=== PATIENT | female | born 1950 | race Caucasian/White ===

== ENCOUNTER 2020-01-23 18:50 | Emergency (ER) | payer MEDICARE ==
[~2020-01-23] VITALS: Ht 160 cm; Wt 178.0 kg
--- NOTE | 2020-01-23 19:27 | NUR ---
CORAL LOZADA AT BEDSIDE TRAUMA IS CALLED OFF.
[2020-01-23 20:18] VITALS: BP 147/79
== END 2020-01-23 20:20 | disposition home or self-care (01) ==
LOC: ER 18:51
DX: S00.81XA Abrasion of other part of head, initial encounter (principal); S60.211A Contusion of right wrist, initial encounter; S00.83XA Contusion of other part of head, initial encounter; I48.91 Unspecified atrial fibrillation; W19.XXXA Unspecified fall, initial encounter; Y93.89 Activity, other specified; Y92.89 Other specified places as the place of occurrence of the external cause; Y99.8 Other external cause status
CPT/HCPCS: 70450; 73130; 99284

== ENCOUNTER 2021-05-25 06:28 | Day surgery (SDC) | payer MEDICARE ==
[2021-05-15 15:09] LABS: BASOPHILS % (AUTO) 0.3 % (0-1); EOSINOPHILS % (AUTO) 0.1 % (0-6); LYMPHOCYTES # (AUTO) 0.9 X10'3 (1.1-4.8); LYMPHOCYTES % (AUTO) 12.9 % (21-51); MEAN CORPUSCULAR HEMOGLOBIN 28.7 PG (27.0-31.0); MEAN CORPUSCULAR HGB CONC 33.4 g/dL (33.0-36.5); MEAN PLATELET VOLUME 9.9 FL (7.4-10.4); MONOCYTES # (AUTO) 0.5 X10'3 (0-0.9); MONOCYTES % (AUTO) 6.7 % (2-12); NEUTROPHILS # (AUTO) 5.9 X10'3 (1.8-7.7); PRE OP HEMATOCRIT 38.5 % (35.0-45.0); PRE OP HEMOGLOBIN 12.8 g/dL (12.0-16.0); PRE OP PLATELET COUNT 233 X10'3 (140-440); RED BLOOD COUNT 4.48 X10'6 (4.20-5.60); RED CELL DISTRIBUTION WIDTH 13.7 % (11.5-14.5)
[2021-05-15 15:21] LABS: ALBUMIN 3.9 G/DL (3.4-5.0); ALBUMIN/GLOBULIN RATIO 1.1 (1.1-1.5); ALKALINE PHOSPHATASE 76 IU/L (46-116); BLOOD UREA NITROGEN 32 MG/DL (7-18); BUN/CREATININE RATIO 22.1 (6.6-38.0); CALCIUM 8.8 MG/DL (8.5-10.1); CHLORIDE 108 MMOL/L (99-107); CREATININE 1.45 MG/DL (0.40-0.90); PRE OP ALT 23 U/L (30-65); PRE OP ANION GAP 13 (8-16); PRE OP AST 15 U/L (10-37); PRE OP BILIRUB, TOTAL 0.3 MG/DL (0.0-1.0); PRE OP GLUCOSE 162 MG/DL (70-104); PRE OP SODIUM 142 MMOL/L (135-145); TOTAL CARBON DIOXIDE 20.6 MMOL/L (24-32); TOTAL PROTEIN 7.3 G/DL (6.4-8.2); eGFR 35 ML/MIN
[~2021-05-25] VITALS: Ht 160 cm; Wt 83.0 kg
[~2021-05-25 06:28] MED LIST: APIX5TAB3 PO; ATOR40TA PO; BENA10TA74 PO; DOCUMENT DATE & TIME OF BETA-BLOCKER PO ONE; EMPA10TA PO; LANTUS SQ; LOPE2TAB25 PO; METF-900 PO; METO-539 PO; cefazolin/dext.iso 2gm/100ml IV ONE; famotidine 20mg tablet PO ONE; ringers solution, lacted 1,000 ML IV SCH
[2021-05-25] MEDS ORDERED: BUPIVAcaine/PF 2.5 mg/ml (0.25%) 30ml vial ONE (06:44)
[2021-05-25 08:08] LABS: BASOPHILS % (AUTO) 0.9 % (0-1); EOSINOPHILS # (AUTO) 0.2 X10'3 (0-0.9); EOSINOPHILS % (AUTO) 3.5 % (0-6); HEMATOCRIT 40.1 % (35.0-45.0); HEMOGLOBIN 13.5 g/dl (12.0-16.0); LYMPHOCYTES # (AUTO) 1.5 X10'3 (1.1-4.8); LYMPHOCYTES % (AUTO) 26.3 % (21-51); MEAN CORPUSCULAR HEMOGLOBIN 28.7 PG (27.0-31.0); MEAN CORPUSCULAR HGB CONC 33.6 g/dL (33.0-36.5); MEAN CORPUSCULAR VOLUME 85.4 FL (78-98); MEAN PLATELET VOLUME 9.7 FL (7.4-10.4); MONOCYTES # (AUTO) 0.6 X10'3 (0-0.9); MONOCYTES % (AUTO) 9.8 % (2-12); NEUTROPHILS # (AUTO) 3.4 X10'3 (1.8-7.7); NEUTROPHILS % (AUTO) 59.5 % (42-75); PLATELET COUNT 212 X10'3 (140-440); RED CELL DISTRIBUTION WIDTH 13.8 % (11.5-14.5); WHITE BLOOD COUNT 5.6 X10'3 (4.5-11.0)
[2021-05-25 08:22] LABS: PARTIAL THROMBOPLASTIN TIME 30 SECONDS (22-32)
[2021-05-25 08:26] LABS: ALANINE AMINOTRANSFERASE 19 U/L (12-78); ALBUMIN 3.7 G/DL (3.4-5.0); ALBUMIN/GLOBULIN RATIO 1.1 (1.1-1.5); ALKALINE PHOSPHATASE 73 IU/L (46-116); ANION GAP 12 (8-16); ASPARTATE AMINO TRANSFERASE 13 U/L (10-37); BILIRUBIN,TOTAL 0.5 MG/DL (0.1-1.0); BLOOD UREA NITROGEN 29 MG/DL (7-18); BUN/CREATININE RATIO 23.2 (6.6-38.0); CALCIUM 8.6 MG/DL (8.5-10.1); CHLORIDE 107 MMOL/L (99-107); CREATININE 1.25 MG/DL (0.40-0.90); GLUCOSE 158 MG/DL (70-104); POTASSIUM 3.9 MMOL/L (3.5-5.1); SODIUM 142 MMOL/L (135-145); TOTAL CARBON DIOXIDE 22.6 MMOL/L (24-32); eGFR 42 ML/MIN
[2021-05-25] MEDS ORDERED: fentaNYL/PF 50MCG/1 ML 2ML syringe ONE (09:32)
[2021-05-25] MEDS ORDERED: midazolam 1 mg/ML 2ml injection ONE (09:32)
[2021-05-25] MEDS ORDERED: LIDOcaine 0.5% (5mg/ml) 50ml vial ONE (09:52)
[2021-05-25] MEDS ORDERED: propofol inj 20 ML IV ONE (09:52)
[2021-05-25 10:02] VITALS: BP 125/58
--- NOTE | 2021-05-25 10:02 | NUR ---
Received from OR via G[facility], accompanied by Anesthesiologist ZULAY and report given by Anesthesiolgist. PT. ARRIVED AWAKE. ON RA. VSS. DENIES PAIN LR INFUSING INTO L. WRIST 20 G IV AT 100 ML/HR, CDI. R. WRIST DRESSING CDI. ICE APPLED. SENSATION AND MOVEMENT INTACT AND ALL PULSES ON EXTREMITIES PALPABLE. AFIB NOTED WITH DOCUMENTED HX. BG 170 UPON ARRIVAL. Addendum: 05/25/21 at 1030 by Daisy Winter RN Amended: Links added.
[2021-05-25] MEDS ORDERED: morphine 4 MG/ML inj SYRINge IV PRN (10:05)
[2021-05-25] MEDS ORDERED: ringers solution, lacted 1,000 ML IV SCH (10:05)
[2021-05-25] MEDS ORDERED: proCHLORperazine 10 MG/2 ml inj IV PRN (10:05)
[2021-05-25] MEDS ORDERED: morphine 2 MG/ML inj. syringe IV PRN (10:05)
[2021-05-25] MEDS ORDERED: ondansetron/PF 4mg/2ml inj IV PRN (10:05)
[2021-05-25] MEDS ORDERED: acetaminophen 1,000mg/100ml IV 100 ML IV PRN (10:05)
[2021-05-25] MEDS ORDERED: meperidine/PF 25mg/ml syringe IV PRN ×3 (10:05)
[2021-05-25] MEDS ORDERED: labetalol 20mg/4ml (5mg/ml) syringe IV PRN (10:05)
[2021-05-25] MEDS ORDERED: hydrALAZINE 20mg/ml inj. IV PRN (10:05)
[2021-05-25 10:10] VITALS: BP 122/56
[2021-05-25 10:20] VITALS: BP 139/72
[2021-05-25 10:23] VITALS: BP 157/88
[2021-05-25 10:30] VITALS: BP 127/72
[2021-05-25 10:31] VITALS: BP 157/88
--- NOTE | 2021-05-25 10:45 | NUR ---
PT. UP AND DRESSING FOR DC. NAUSEA REPORTED. ZOFRAN GIVEN ORDERED. PT. RESTING IN GURNEY. NOTIFIED OF DELAY. Addendum: 05/25/21 at 1054 by Daisy Winter RN Amended: Links added.
--- NOTE | 2021-05-25 11:02 | NUR ---
ALL DISCHARGE CRITERIA HAS BEEN MET. VSS, DENIES PAIN , PT. GIVEN ONE DOSE OF ZOFRAN FOR REPORT OF NAUSEA AND MONITORED FOR 15 MINUTES. NO NAUSEA AT DC. DENIES NEED TO VOID, ABLE TO SAFELY AMBULATE AND TRANSFER SELF. IV TAKEN OUT WITHOUT ANY COMPLICATIONS. ALL DISCHARGE INSTRUCTIONS COVERED WITH PATIENT AND ALL QUESTIONS ANSWERED. PATIENT TAKEN OUT VIA WHEELCHAIR TO PERSONAL VEHICLE WHERE FAMILY/FRIEND DROVE PATIENT HOME. Addendum: 05/25/21 at 1105 by Daisy Winter RN Amended: Links added.
== END 2021-05-25 11:02 | disposition home or self-care (01) ==
LOC: PAS 06:28
PROVIDERS: ATTEND Orthopaedic Surgery Hand Surgery
DX: G56.01 Carpal tunnel syndrome, right upper limb (principal); M65.331 Trigger finger, right middle finger; I10 Essential (primary) hypertension; I48.91 Unspecified atrial fibrillation; E11.9 Type 2 diabetes mellitus without complications; E66.9 Obesity, unspecified; Z68.33 Body mass index [BMI] 33.0-33.9, adult; Z87.891 Personal history of nicotine dependence; Z72.89 Other problems related to lifestyle; Z79.899 Other long term (current) drug therapy; Z79.01 Long term (current) use of anticoagulants; Z79.4 Long term (current) use of insulin; Z98.890 Other specified postprocedural states; Z90.710 Acquired absence of both cervix and uterus
CPT/HCPCS: 26055; 36415; 64721; 80053; 82948; 85025; 85610; 85730; J2001; J2250; J2405; J2704; J3010; J3490; A4215; J7120

== ENCOUNTER 2021-07-06 07:35 | Day surgery (SDC) | payer MEDICARE ==
[2021-06-30 14:45] LABS: BASOPHILS % (AUTO) 0.6 % (0-1); EOSINOPHILS # (AUTO) 0.3 X10'3 (0-0.9); EOSINOPHILS % (AUTO) 3.7 % (0-6); LYMPHOCYTES # (AUTO) 1.4 X10'3 (1.1-4.8); LYMPHOCYTES % (AUTO) 20.6 % (21-51); MEAN CORPUSCULAR HEMOGLOBIN 28.5 PG (27.0-31.0); MEAN CORPUSCULAR HGB CONC 33.6 g/dL (33.0-36.5); MEAN PLATELET VOLUME 9.5 FL (7.4-10.4); MONOCYTES # (AUTO) 0.5 X10'3 (0-0.9); MONOCYTES % (AUTO) 7.5 % (2-12); NEUTROPHILS # (AUTO) 4.7 X10'3 (1.8-7.7); NEUTROPHILS % (AUTO) 67.6 % (42-75); PRE OP HEMATOCRIT 40.2 % (35.0-45.0); PRE OP HEMOGLOBIN 13.5 g/dL (12.0-16.0); PRE OP PLATELET COUNT 209 X10'3 (140-440); RED BLOOD COUNT 4.73 X10'6 (4.20-5.60)
[2021-06-30 15:15] LABS: ALBUMIN 4.1 G/DL (3.4-5.0); ALBUMIN/GLOBULIN RATIO 1.4 (1.1-1.5); ALKALINE PHOSPHATASE 67 IU/L (46-116); BLOOD UREA NITROGEN 30 MG/DL (7-18); BUN/CREATININE RATIO 23.4 (6.6-38.0); CHLORIDE 108 MMOL/L (99-107); CREATININE 1.28 MG/DL (0.40-0.90); PRE OP ALT 16 U/L (30-65); PRE OP ANION GAP 11 (8-16); PRE OP AST 14 U/L (10-37); PRE OP BILIRUB, TOTAL 0.5 MG/DL (0.0-1.0); PRE OP GLUCOSE 113 MG/DL (70-104); PRE OP POTASSIUM 4.1 MMOL/L (3.4-5.1); PRE OP SODIUM 143 MMOL/L (135-145); TOTAL CARBON DIOXIDE 24.3 MMOL/L (24-32); TOTAL PROTEIN 7.1 G/DL (6.4-8.2); eGFR 41 ML/MIN
[~2021-07-06] VITALS: Ht 162.6 cm; Wt 84.0 kg
[2021-07-06] VITALS (10 sets, daily range): BP systolic 160–182; BP diastolic 76–112
[~2021-07-06 07:35] MED LIST changes: +BUPIVAcaine/PF 2.5mg/ml (0.25%) 10ml vial ONE; -LOPE2TAB25 PO
[2021-07-06] MEDS ORDERED: LIDOcaine 1% 30ml preserv. free vial ONE (07:44)
[2021-07-06] MEDS ORDERED: metoprolol tartrate 1mg/ml inj IV ONE (08:50)
[2021-07-06] MEDS ORDERED: midazolam 1 mg/ML 2ml injection ONE (09:36)
[2021-07-06] MEDS ORDERED: fentaNYL/PF 50MCG/1 ML 2ML syringe ONE (09:36)
--- NOTE | 2021-07-06 10:23 | NUR ---
Received from OR via , accompanied by Anesthesiologist DR PATEL and report given by Anesthesiolgist. PT PRESENTS WITH PIV 20G RIGHT FOREARM, DRESSING ON RIGHT HAND/WRIST DRY AND INTACT. VSS. Addendum: 07/06/21 at 1041 by Marlin Crawford RN, RN Amended: Links added.
[2021-07-06] MEDS ORDERED: ketorolac trometh. 30mg/ml inj. ONE (10:51)
[2021-07-06] MEDS ORDERED: ondansetron/PF 4mg/2ml inj IV ONE (11:20)
--- NOTE | 2021-07-06 11:33 | NUR ---
PATIENT A&OX4, DENIES PAIN, V/S STABLE. I HAVE REVIEWED D/C ORDERS WITH PATIENT AND HAVE VERBALIZED UNDERSTANDING. PATIENT D/C HOME WITH ALL BELONGINGS AND DAUGHTER GAVE TRANSPORT.PT SENT [facility] WITH ICE PACK. Addendum: 07/06/21 at 1209 by Marlin Crawford RN, RN Amended: Links added.
== END 2021-07-06 11:33 | disposition home or self-care (01) ==
LOC: PAS 07:35
PROVIDERS: ATTEND Orthopaedic Surgery Hand Surgery
DX: G56.02 Carpal tunnel syndrome, left upper limb (principal); M65.332 Trigger finger, left middle finger; I48.91 Unspecified atrial fibrillation; I10 Essential (primary) hypertension; E11.9 Type 2 diabetes mellitus without complications; Z79.01 Long term (current) use of anticoagulants; Z79.899 Other long term (current) drug therapy; Z79.4 Long term (current) use of insulin; Z72.89 Other problems related to lifestyle; Z98.890 Other specified postprocedural states; Z90.710 Acquired absence of both cervix and uterus; Z87.891 Personal history of nicotine dependence
CPT/HCPCS: 26055; 36415; 64721; 80053; 82948; 85025; J1885; J2001; J2250; J2405; J3010; J3490; Z7506; Z7512; A4215; J7120

== ENCOUNTER 2022-09-03 07:58 | Outpatient (CLI) | payer MEDICARE ==
[2022-09-03] VITALS (8 sets, daily range): BP systolic 185–198; BP diastolic 99–111
[~2022-09-03] VITALS: Ht 160 cm; Wt 84.0 kg
[~2022-09-03 07:58] MED LIST changes: -BUPIVAcaine/PF 2.5mg/ml (0.25%) 10ml vial ONE; -DOCUMENT DATE & TIME OF BETA-BLOCKER PO ONE; -cefazolin/dext.iso 2gm/100ml IV ONE; -famotidine 20mg tablet PO ONE; -ringers solution, lacted 1,000 ML IV SCH
[2022-09-03] MEDS ORDERED: normal saline 500ml IV soln 500 ML IV ONE (08:40)
[2022-09-03] MEDS ORDERED: regadenoson 0.4mg/5ml syringe IV ONE (08:40)
[2022-09-03] MEDS ORDERED: aminophylline 500mg/20ml vial IV PRN (08:40)
[2022-09-03] MEDS ORDERED: metoprolol tartrate 1mg/ml inj IV PRN (08:40)
[2022-09-03] MEDS ORDERED: nitroGLYCERIN 0.4mg SUBLingual tab SL PRN (08:40)
[2022-09-03] MEDS ORDERED: atropine 0.1mg/ml 10ml syringe IV PRN (08:40)
== END 2022-09-03 23:59 | disposition home or self-care (01) ==
LOC: RAD 07:58
PROVIDERS: ATTEND Internal Medicine Cardiovascular Disease
DX: Z01.810 Encounter for preprocedural cardiovascular examination (principal); R06.02 Shortness of breath
CPT/HCPCS: 78451; 93017; A9500; J0280; J2785; J7040

== ENCOUNTER 2023-04-26 11:30 | Inpatient (IN) | payer MEDICARE ==
[~2023-04-26] VITALS: Ht 160 cm; Wt 83.4 kg
[~2023-04-26 11:30] MED LIST changes: -ATOR40TA PO; -BENA10TA74 PO; -EMPA10TA PO; -METO-539 PO
[2023-04-27] MEDS ORDERED: METO-395 PO (11:25)
[2023-04-27] MEDS ORDERED: BENA20TA83 PO (19:16)
[2023-04-27] MEDS ORDERED: EMPA25TA PO (19:16)
[2023-05-17] MEDS ORDERED: ATOR10TA70 PO (14:01)
[2023-05-17] MEDS ORDERED: FURO-150 PO (14:01)
[2023-05-17] MEDS ORDERED: ASPI81TA52 PO (14:01)
[2023-05-17 14:18] LABS: BASOPHILS # (AUTO) 0.1 X10'3 (0-0.2); BASOPHILS % (AUTO) 0.7 % (0-1); EOSINOPHILS # (AUTO) 0.3 X10'3 (0-0.9); EOSINOPHILS % (AUTO) 3.2 % (0-6); LYMPHOCYTES # (AUTO) 1.5 X10'3 (1.1-4.8); LYMPHOCYTES % (AUTO) 18.3 % (21-51); MEAN CORPUSCULAR HEMOGLOBIN 27.9 PG (27.0-31.0); MEAN CORPUSCULAR HGB CONC 33.3 g/dL (33.0-36.5); MEAN CORPUSCULAR VOLUME 83.8 FL (78-98); MEAN PLATELET VOLUME 9.5 FL (7.4-10.4); MONOCYTES # (AUTO) 0.6 X10'3 (0-0.9); MONOCYTES % (AUTO) 7.5 % (2-12); NEUTROPHILS % (AUTO) 70.3 % (42-75); PRE OP HEMATOCRIT 43.8 % (35.0-45.0); PRE OP HEMOGLOBIN 14.6 g/dL (12.0-16.0); PRE OP PLATELET COUNT 261 X10'3 (140-440); RED BLOOD COUNT 5.22 X10'6 (4.20-5.60); RED CELL DISTRIBUTION WIDTH 14.3 % (11.5-14.5)
[2023-05-17 14:32] LABS: ALBUMIN/GLOBULIN RATIO 1.2 (1.1-1.5); ALKALINE PHOSPHATASE 92 IU/L (46-116); BLOOD UREA NITROGEN 38 MG/DL (7-18); BUN/CREATININE RATIO 26.8 (10.0-20.0); CALCIUM 9.7 MG/DL (8.5-10.1); CHLORIDE 105 MMOL/L (99-107); CREATININE 1.42 MG/DL (0.40-0.90); PRE OP ALT 16 U/L (30-65); PRE OP ANION GAP 11 (8-16); PRE OP AST 13 U/L (10-37); PRE OP BILIRUB, TOTAL 0.7 MG/DL (0.0-1.0); PRE OP GLUCOSE 160 MG/DL (70-104); PRE OP POTASSIUM 4.4 MMOL/L (3.4-5.1); PRE OP SODIUM 142 MMOL/L (135-145); TOTAL CARBON DIOXIDE 25.8 MMOL/L (24-32); TOTAL PROTEIN 7.4 G/DL (6.4-8.2); eGFR 36 ML/MIN
[2023-05-17 14:33] LABS: HEMOGLOBIN A1C 7.8 % (4.5-6.2)
[2023-05-24] VITALS (27 sets, daily range): BP systolic 119–185; BP diastolic 63–93
[2023-05-24] MEDS ORDERED: DOCUMENT DATE & TIME OF BETA-BLOCKER PO ONE (05:30)
[2023-05-24] MEDS ORDERED: vancomycin 1,500 MG in NS 300ml IV soln IV ONE (05:30)
[2023-05-24] MEDS ORDERED: tranexamic acid 650mg tablet PO ONE (05:30)
[2023-05-24] MEDS ORDERED: cefazolin 2gm/D5W 100mL 100 ML IV ONE (05:30)
[2023-05-24] MEDS ORDERED: famotidine 20mg tablet PO ONE (05:30)
[2023-05-24] MEDS: normal saline 1000ml 500 ML IV SCH (07:44)
[2023-05-24] MEDS ORDERED: aprepitant 40mg capsule PO STA (09:29)
[2023-05-24] MEDS ORDERED: MIDAZolam 1 MG/ML 5ML VIAL ONE (09:54)
[2023-05-24] MEDS ORDERED: fentaNYL/PF 50MCG/1 ML 2ML syringe ONE (09:54)
[2023-05-24] MEDS ORDERED: propofol inj 20 ML IV ONE (10:01)
[2023-05-24] MEDS ORDERED: ROPIVAcaine 0.5% (5mg/ml) 30ml vial ONE ×2 (10:01→10:09)
[2023-05-24] MEDS ORDERED: ondansetron/PF 4mg/2ml inj IV PRN ×2 (10:45→13:10)
[2023-05-24] MEDS ORDERED: ringers solution, lacted 1,000 ML IV SCH (10:45)
[2023-05-24] MEDS ORDERED: morphine 2 MG/ML inj. syringe IV PRN (10:45)
[2023-05-24] MEDS ORDERED: ROPIVAcaine 0.2% (10 MG/5 ML) BOLUS INJECTION INTERSCALE PRN (10:45)
[2023-05-24] MEDS ORDERED: morphine 4 MG/ML inj SYRINge IV PRN (10:45)
[2023-05-24] MEDS ORDERED: meperidine/PF 25mg/ml syringe IV PRN ×3 (10:45)
[2023-05-24] MEDS ORDERED: proCHLORperazine 10 MG/2 ml inj IV PRN (10:45)
[2023-05-24] MEDS ORDERED: ePHEDrine 50MG/ML INJ. ONE (10:46)
[2023-05-24] MEDS ORDERED: sevoflurane 250ml liquid IH ONE (10:46)
[2023-05-24] MEDS ORDERED: dexamethasone sod phosphate 4mg/ml inj. ONE (12:28)
[2023-05-24] MEDS ORDERED: ondansetron/PF 4mg/2ml inj ONE (12:28)
--- NOTE | 2023-05-24 12:55 | NUR ---
Received from OR via BED, accompanied by DR. JOSEPH-Anesthesia report given. PATIENT WAKING UP, DENIES PAIN, V/S WNL, SCD ON , PIV 20G LUE, DRESSING SHOULDER WRAP TO RIGHT SIDE CDI W/ ONQ CATHETER PRESENT AND COLD POWDER PACK, PULSES PRESENT TO BUE, CAP REFILL <2SEC
[2023-05-24] MEDS ORDERED: oxyCODONE IR 5mg (immed. release) tablet PO PRN ×2 (13:10)
[2023-05-24] MEDS ORDERED: diphenhydrAMINE 25mg capsule PO PRN ×2 (13:10)
[2023-05-24] MEDS ORDERED: HYDROmorphone inj. 0.5 MG/0.5 ML DISP.SYRIN IV PRN (13:10)
[2023-05-24] MEDS ORDERED: bisacodyl 10mg suppository rectal RC PRN (13:10)
[2023-05-24] MEDS ORDERED: HYDROmorphone 1 mg/ml syringe IV PRN (13:10)
[2023-05-24] MEDS ORDERED: acetaminophen 325mg tablet PO PRN (13:10)
[2023-05-24] MEDS ORDERED: naloxone 0.4 mg/ml inj IV PRN (13:10)
[2023-05-24] MEDS ORDERED: HYDROcodone/acetaminophen 10/325mg tab PO PRN (13:10)
[2023-05-24] MEDS: potassium cl 20mEq in 1/2 NS 1,000 ML IV SCH ×2 (13:10→21:10)
[2023-05-24] MEDS ORDERED: magnesium hydroxide 30ml (MOM) UD suspension PO PRN (13:10)
[2023-05-24] MEDS: ROPIVAcaine 0.2%/PF PUMP/bolus 545 ML INTERSCALE SCH (13:25)
--- NOTE | 2023-05-24 15:25 | NUR ---
PT AWAKE, DOING WELL, VSS, DENIES PAIN, SHOULDER IN SLING, ON-Q ATTACHED AND RUNNING AT 2ML/HR-PT EDUCATED REGARDING USE, DRSG-CDI, ABLE TO MOVE FINGERS, PULSES PRESENT, CSM INTACT, SCDS ON, PIV 20G LEFT HAND-NS RUNNING AT 100ML/HR, DTR AND AT BEDSIDE, REPORT CALLED TO JACQUI ALL QUESTIONS ANSWERED, TAKEN UP TO ROOM BY ORDERLIES (BELONGINGS WITH DTR).
[2023-05-24] MEDS: ceFAZolin/D5W- 1GM premix 50 ML IV SCH (17:02)
--- NOTE | 2023-05-24 18:00 | NUR ---
I have reviewed and agree with interventions, assessments, and documentation by Andreia Harrison LVN.
--- NOTE | 2023-05-24 19:00 | NUR ---
Received report from Andreia COKER.
[2023-05-24] MEDS ORDERED: METFORMIN ER 500MG PO SCH (20:00)
[2023-05-24] MEDS ORDERED: vancomycin/NS 1 GM ADD-VANTAGE 250 ML IV SCH (20:00)
--- NOTE | 2023-05-24 20:56 | NUR ---
Per , okay to S/L fluids now.
[2023-05-24] MEDS: apixaban 5mg tablet PO SCH (20:59)
[2023-05-24] MEDS: insulin glargine (Lantus) pen - multi-dose SQ SCH (21:00)
[2023-05-24] MEDS: atorvastatin 10mg tablet PO SCH (21:01)
[2023-05-24] MEDS: sennosides 8.6mg tablet PO SCH (21:01)
[2023-05-24] MEDS ORDERED: metFORMIN 500mg tablet PO SCH ×2 (21:25→22:46)
[2023-05-24] MEDS ORDERED: furosemide 20 MG/2 ML vial IV ONE (22:30)
[2023-05-24] MEDS ORDERED: diazepam 2mg tablet PO PRN ×2 (22:30→23:10)
[2023-05-24] MEDS: aspirin 81mg, enteric-coated 1 TAB TABLET.DR PO SCH (22:52)
[2023-05-25] MEDS: ceFAZolin/D5W- 1GM premix 50 ML IV SCH (00:42)
[2023-05-25] MEDS: HYDROcodone/acetaminophen 10/325mg tab PO PRN ×3 (02:33→20:57)
[2023-05-25 06:00] VITALS: BP 160/90
--- NOTE | 2023-05-25 06:05 | NUR ---
Patient had numerous concerns and complaints during the shift that continued after her nursing daughter had left. Very anxious and unable to sleep. Patient stated that her mom had in this hospital from a PE, and that she felt like she was having one (this was as she was sitting on the edge of the bed talking away). BP elevated. Given 1mg of valium for anxiety, Placed oxygen on d/t c/o SOB for comfort. Patient was S/L as daughter worried about CHF, and one time dose of lasix given per their insistence, regardless of lungs CTA and o2 sats from 94 -100. Patient finally slept for an hour after receiving norco for pain and benadryl. Manual BP at 0600 was 160/90. Patient appearing relaxed laying in her bed.
[2023-05-25 06:17] LABS: BASOPHILS # (AUTO) 0.1 X10'3 (0-0.2); BASOPHILS % (AUTO) 0.7 % (0-1); EOSINOPHILS % (AUTO) 0 % (0-6); HEMATOCRIT 37.7 % (35.0-45.0); HEMOGLOBIN 12.7 g/dl (12.0-16.0); LYMPHOCYTES # (AUTO) 0.6 X10'3 (1.1-4.8); LYMPHOCYTES % (AUTO) 6.1 % (21-51); MEAN CORPUSCULAR HGB CONC 33.6 g/dL (33.0-36.5); MEAN CORPUSCULAR VOLUME 83.3 FL (78-98); MEAN PLATELET VOLUME 9.5 FL (7.4-10.4); MONOCYTES # (AUTO) 0.5 X10'3 (0-0.9); MONOCYTES % (AUTO) 4.7 % (2-12); NEUTROPHILS # (AUTO) 9.4 X10'3 (1.8-7.7); NEUTROPHILS % (AUTO) 88.5 % (42-75); PLATELET COUNT 171 X10'3 (140-440); RED BLOOD COUNT 4.53 X10'6 (4.20-5.60); RED CELL DISTRIBUTION WIDTH 13.9 % (11.5-14.5); WHITE BLOOD COUNT 10.6 X10'3 (4.5-11.0)
--- NOTE | 2023-05-25 06:20 | NUR ---
Patient in room ORTHO 4018. I have received report from Priya JOHNSON and had the opportunity to ask questions and assume patient care.
[2023-05-25 06:30] LABS: ANION GAP 10 (8-16); CHLORIDE 102 MMOL/L (99-107); POTASSIUM 4.6 MMOL/L (3.5-5.1); SODIUM 135 MMOL/L (135-145); TOTAL CARBON DIOXIDE 22.7 MMOL/L (24-32)
[2023-05-25] MEDS: normal saline 1000ml 500 ML IV SCH (06:30)
[2023-05-25] MEDS: potassium cl 20mEq in 1/2 NS 1,000 ML IV SCH (06:47)
[2023-05-25] MEDS ORDERED: aspirin 81mg, enteric-coated 1 TAB TABLET.DR PO SCH ×2 (08:00)
[2023-05-25] MEDS: aspirin 81mg, enteric-coated 1 TAB TABLET.DR PO SCH ×2 (08:20→20:56)
[2023-05-25] MEDS: apixaban 5mg tablet PO SCH ×2 (08:20→20:58)
[2023-05-25] MEDS: lisinopril 20mg tablet PO SCH (08:21)
[2023-05-25] MEDS: furosemide 20MG tablet PO SCH ×2 (08:21→21:00)
[2023-05-25] MEDS: EMPAGLIFLOZIN 25 MG TABLET PO SCH (08:21)
[2023-05-25] MEDS: metoprolol succinate 25mg (24-HOUR) SR. Tablet PO SCH (08:21)
--- NOTE | 2023-05-25 10:34 | NUR ---
Joint surgery/DM consults: Pt s/p L shoulder surgery per EMR. Pt was asleep during time of visit and not interested in a detailed discussion at this time due to her sleepiness.Pt seen for high protein and diabetic education given A1c of 7.8%, written/verbal education information with RD contact information left at bedside. Pt encouraged to reach out for any questions or concerns. Addendum: 05/25/23 at [address] Amended: Links added. Addendum: 05/25/23 at [address] MARLA has reviewed and approves of above note.
[2023-05-25 10:48] VITALS: BP 176/92
[2023-05-25 11:59] LABS: BLOOD UREA NITROGEN 35 MG/DL (7-18); CREATININE 1.56 MG/DL (0.40-0.90); eGFR 32 ML/MIN
[2023-05-25 13:34] LABS: D-DIMER 0.79 MG/L FEU (0-0.50)
[2023-05-25 18:00] VITALS: BP 164/80
--- NOTE | 2023-05-25 18:00 | NUR ---
I have reviewed and agree with interventions, assessments, and documentation by Andreia Harrison LVN
[2023-05-25] MEDS: atorvastatin 10mg tablet PO SCH (20:57)
[2023-05-25] MEDS: sennosides 8.6mg tablet PO SCH (20:58)
[2023-05-25] MEDS ORDERED: glucagon, human recombinant 1mg kit SUBCUT PRN (21:10)
[2023-05-25] MEDS ORDERED: DEXTROSE 15 GM of carb/4 tabs (each vial/BOTTLE has 4 tablets) PO PRN ×2 (21:10)
[2023-05-25] MEDS ORDERED: dextrose 50%-water 50ml dispensing syringe IV PRN ×2 (21:10)
[2023-05-25] MEDS ORDERED: MESSAGE TO PHARMACY PO ONE (21:10)
[2023-05-25 22:00] VITALS: BP 143/77
[2023-05-25] MEDS: insulin glargine (Lantus) pen - multi-dose SQ SCH (22:05)
[2023-05-25] MEDS: insulin Lispro (HumaLOG) vial - multi-dose SQ SCH (22:05)
[2023-05-26 06:00] VITALS: BP 141/62
--- NOTE | 2023-05-26 06:36 | NUR ---
Report given to Rissa JOHNSON, patient had a good nights sleep and is resting comfortably, awake in bed. No current complaints or problems.
[2023-05-26 06:40] LABS: PRE OP PARTIAL THROMB. TIME 28 SECONDS (22-32)
[2023-05-26] MEDS: HYDROcodone/acetaminophen 10/325mg tab PO PRN ×3 (06:49→19:35)
[2023-05-26 07:57] LABS: BASOPHILS % (AUTO) 0.6 % (0-1); EOSINOPHILS # (AUTO) 0.1 X10'3 (0-0.9); HEMATOCRIT 34.9 % (35.0-45.0); HEMOGLOBIN 11.5 g/dl (12.0-16.0); LYMPHOCYTES # (AUTO) 1.5 X10'3 (1.1-4.8); LYMPHOCYTES % (AUTO) 18.1 % (21-51); MEAN CORPUSCULAR HEMOGLOBIN 27.8 PG (27.0-31.0); MEAN CORPUSCULAR HGB CONC 33.1 g/dL (33.0-36.5); MEAN CORPUSCULAR VOLUME 84.2 FL (78-98); MEAN PLATELET VOLUME 9.6 FL (7.4-10.4); MONOCYTES # (AUTO) 0.9 X10'3 (0-0.9); MONOCYTES % (AUTO) 11.5 % (2-12); NEUTROPHILS # (AUTO) 5.6 X10'3 (1.8-7.7); NEUTROPHILS % (AUTO) 68.8 % (42-75); PLATELET COUNT 173 X10'3 (140-440); RED BLOOD COUNT 4.15 X10'6 (4.20-5.60); RED CELL DISTRIBUTION WIDTH 14.4 % (11.5-14.5); WHITE BLOOD COUNT 8.1 X10'3 (4.5-11.0)
[2023-05-26] MEDS: furosemide 20MG tablet PO SCH ×2 (08:00→08:10)
[2023-05-26] MEDS: insulin Lispro (HumaLOG) vial - multi-dose SQ SCH ×3 (08:09→19:30)
[2023-05-26] MEDS: aspirin 81mg, enteric-coated 1 TAB TABLET.DR PO SCH ×2 (08:10→19:30)
[2023-05-26] MEDS: EMPAGLIFLOZIN 25 MG TABLET PO SCH (08:10)
[2023-05-26] MEDS: apixaban 5mg tablet PO SCH ×2 (08:10→19:30)
[2023-05-26] MEDS: lisinopril 20mg tablet PO SCH (08:10)
[2023-05-26] MEDS: metoprolol succinate 25mg (24-HOUR) SR. Tablet PO SCH (08:11)
[2023-05-26 10:00] VITALS: BP 123/63
[2023-05-26] MEDS: ROPIVAcaine 0.2%/PF PUMP/bolus 545 ML INTERSCALE SCH (10:45)
[2023-05-26] MEDS ORDERED: furosemide 20 MG/2 ML vial IV ONE (13:35)
--- NOTE | 2023-05-26 13:35 | NUR ---
Received orders from Dr Blanco for PBNP add on test, Troponin series, Lasix 40 IV daily, Lasix 20 mg IV now Colace 100mg PO BID
--- NOTE | 2023-05-26 18:44 | NUR ---
Problems reprioritized. Patient report given, questions answered & plan of care reviewed with Riana JOHNSON.
[2023-05-26] MEDS: sennosides 8.6mg tablet PO SCH (19:30)
[2023-05-26] MEDS: atorvastatin 10mg tablet PO SCH (19:30)
[2023-05-26] MEDS: docusate sod 100mg capsule PO SCH (19:30)
--- NOTE | 2023-05-26 21:43 | NUR ---
Per PATY pharmacist. It is okay to give home dose of 30units of lantus with correctional security officer/gfr
[2023-05-26] MEDS: insulin glargine (Lantus) pen - multi-dose SQ SCH (21:54)
[2023-05-27 06:00] VITALS: BP 120/74
--- NOTE | 2023-05-27 06:52 | NUR ---
REPORT GIVEN TO DOYLE JOHNSON, ALL QUESTIONS ANSWERED AT THIS TIME.
[2023-05-27] MEDS: metoprolol succinate 25mg (24-HOUR) SR. Tablet PO SCH (07:45)
[2023-05-27 07:46] VITALS: BP_SYST 154
[2023-05-27] MEDS: EMPAGLIFLOZIN 25 MG TABLET PO SCH (07:46)
[2023-05-27] MEDS: apixaban 5mg tablet PO SCH (07:46)
[2023-05-27] MEDS: aspirin 81mg, enteric-coated 1 TAB TABLET.DR PO SCH (07:46)
[2023-05-27] MEDS: docusate sod 100mg capsule PO SCH (07:46)
[2023-05-27] MEDS: lisinopril 20mg tablet PO SCH (07:46)
[2023-05-27] MEDS: HYDROcodone/acetaminophen 10/325mg tab PO PRN ×3 (07:47→16:08)
[2023-05-27 07:53] LABS: BASOPHILS # (AUTO) 0.1 X10'3 (0-0.2); BASOPHILS % (AUTO) 0.7 % (0-1); EOSINOPHILS # (AUTO) 0.2 X10'3 (0-0.9); EOSINOPHILS % (AUTO) 3.2 % (0-6); HEMOGLOBIN 12.5 g/dl (12.0-16.0); LYMPHOCYTES # (AUTO) 1.5 X10'3 (1.1-4.8); LYMPHOCYTES % (AUTO) 20.4 % (21-51); MEAN CORPUSCULAR HEMOGLOBIN 27.8 PG (27.0-31.0); MEAN CORPUSCULAR HGB CONC 33.9 g/dL (33.0-36.5); MEAN CORPUSCULAR VOLUME 82.1 FL (78-98); MEAN PLATELET VOLUME 9.6 FL (7.4-10.4); MONOCYTES # (AUTO) 0.8 X10'3 (0-0.9); MONOCYTES % (AUTO) 10.3 % (2-12); NEUTROPHILS # (AUTO) 4.9 X10'3 (1.8-7.7); NEUTROPHILS % (AUTO) 65.4 % (42-75); PLATELET COUNT 194 X10'3 (140-440); RED CELL DISTRIBUTION WIDTH 14.2 % (11.5-14.5); WHITE BLOOD COUNT 7.5 X10'3 (4.5-11.0)
[2023-05-27] MEDS ORDERED: furosemide 40mg/4ml inj IV SCH (08:00)
[2023-05-27 08:02] LABS: ALANINE AMINOTRANSFERASE 14 U/L (12-78); ALBUMIN 3.2 G/DL (3.4-5.0); ALKALINE PHOSPHATASE 70 IU/L (46-116); ANION GAP 11 (8-16); ASPARTATE AMINO TRANSFERASE 19 U/L (10-37); BILIRUBIN,TOTAL 0.6 MG/DL (0.1-1.0); BLOOD UREA NITROGEN 33 MG/DL (7-18); BUN/CREATININE RATIO 26.6 (10.0-20.0); CALCIUM 8.7 MG/DL (8.5-10.1); CHLORIDE 105 MMOL/L (99-107); CREATININE 1.24 MG/DL (0.40-0.90); GLUCOSE 155 MG/DL (70-104); POTASSIUM 3.5 MMOL/L (3.5-5.1); SODIUM 140 MMOL/L (135-145); TOTAL CARBON DIOXIDE 24.4 MMOL/L (24-32); TOTAL PROTEIN 6.4 G/DL (6.4-8.2); eGFR 42 ML/MIN
[2023-05-27] MEDS: insulin Lispro (HumaLOG) vial - multi-dose SQ SCH ×2 (08:48→14:04)
--- NOTE | 2023-05-27 16:00 | NUR ---
Patient discharge instructions reviewed with patient and patient verbalized understanding. Patients IV dc'd cannula intact. Patients was sent home with powder packs and dressings. Patient and all belongings were taken to daughters vehicle for transport home with all her belongings
== END 2023-05-27 16:20 | disposition home or self-care (01) | DRG 483 ==
LOC: PAS IN 05-24 07:01 → ORTHO 4S 05-24 15:37
PROVIDERS: ADMIT Orthopaedic Surgery; ATTEND Orthopaedic Surgery
PROC: 0LS30ZZ Reposition Right Upper Arm Tendon, Open Approach (ICD-10-PCS; 2023-05-24)
PROC: 3E0T3BZ Introduction of Anesthetic Agent into Peripheral Nerves and Plexi, Percutaneous Approach (ICD-10-PCS; 2023-05-24)
PROC: 0RRJ00Z Replacement of Right Shoulder Joint with Reverse Ball and Socket Synthetic Substitute, Open Approach (ICD-10-PCS; principal; 2023-05-24 10:46)
DX: M19.011 Primary osteoarthritis, right shoulder (principal); I50.33 Acute on chronic diastolic (congestive) heart failure; Q21.12 Patent foramen ovale; N17.9 Acute kidney failure, unspecified; J98.11 Atelectasis; M75.121 Complete rotator cuff tear or rupture of right shoulder, not specified as traumatic; E78.5 Hyperlipidemia, unspecified; I10 Essential (primary) hypertension; M65.811 Other synovitis and tenosynovitis, right shoulder; E11.9 Type 2 diabetes mellitus without complications; M75.20 Bicipital tendinitis, unspecified shoulder; F41.9 Anxiety disorder, unspecified; I48.0 Paroxysmal atrial fibrillation; I25.10 Atherosclerotic heart disease of native coronary artery without angina pectoris; Z90.710 Acquired absence of both cervix and uterus; Z87.891 Personal history of nicotine dependence; Z91.041 Radiographic dye allergy status; Z79.82 Long term (current) use of aspirin; Z79.84 Long term (current) use of oral hypoglycemic drugs; Z79.4 Long term (current) use of insulin; Z79.899 Other long term (current) drug therapy; Z86.73 Personal history of transient ischemic attack (TIA), and cerebral infarction without residual deficits; Z79.01 Long term (current) use of anticoagulants
CPT/HCPCS: 36415; 71045; 71046; 78582; 80051; 80053; 82565; 82948; 83036; 83880; 84484; 84520; 85025; 85379; 85610; 85730; 87081; 97110; 97161; 97530; 97535; A4565; A4615; A4618; A6222; A6253; A6446; A6449; A7000; A9539; A9540; C1776; G0378; J0690; J1100; J1815; J1940; J2250; J2405; J2704; J2795; J3010; J3370; J3490; J7030; J7040; J7120; J8501; Q0163

== ENCOUNTER 2023-09-30 08:53 | Day surgery (SDC) | payer MEDICARE ==
[2023-09-29 15:21] LABS: BASOPHILS # (AUTO) 0.1 X10'3 (0-0.2); BASOPHILS % (AUTO) 0.5 % (0-1); EOSINOPHILS # (AUTO) 0.3 X10'3 (0-0.9); EOSINOPHILS % (AUTO) 3.1 % (0-6); HEMATOCRIT 43.3 % (35.0-45.0); HEMOGLOBIN 14.3 g/dl (12.0-16.0); LYMPHOCYTES # (AUTO) 1.8 X10'3 (1.1-4.8); LYMPHOCYTES % (AUTO) 20.1 % (21-51); MEAN CORPUSCULAR HEMOGLOBIN 26.8 PG (27.0-31.0); MEAN PLATELET VOLUME 9.6 FL (7.4-10.4); MONOCYTES # (AUTO) 0.7 X10'3 (0-0.9); NEUTROPHILS # (AUTO) 6.3 X10'3 (1.8-7.7); NEUTROPHILS % (AUTO) 68.3 % (42-75); PLATELET COUNT 231 X10'3 (140-440); RED BLOOD COUNT 5.35 X10'6 (4.20-5.60); WHITE BLOOD COUNT 9.2 X10'3 (4.5-11.0)
[2023-09-29 15:25] LABS: ANION GAP 11 (8-16); BLOOD UREA NITROGEN 28 MG/DL (7-18); BUN/CREATININE RATIO 18.7 (10.0-20.0); CALCIUM 9.7 MG/DL (8.5-10.1); CHLORIDE 104 MMOL/L (99-107); GLUCOSE 174 MG/DL (70-104); POTASSIUM 3.9 MMOL/L (3.5-5.1); SODIUM 140 MMOL/L (135-145); TOTAL CARBON DIOXIDE 24.6 MMOL/L (24-32); eGFR 34 ML/MIN
[2023-09-29 15:26] LABS: APTT 29 SECONDS (22-32); INR 1.1 INR; PROTHROMBIN TIME 11.9 SECONDS (9.0-12.0)
[2023-09-30] VITALS (16 sets, daily range): BP systolic 138–191; BP diastolic 76–106; PULSE 67–109; RESP 10–28; TEMP 98.5; O2SAT 96–98
[~2023-09-30] VITALS: Ht 160 cm; Wt 84.0 kg
[~2023-09-30 08:53] MED LIST changes: +ASPI81TA52 PO; +ATOR10TA70 PO; +BENA20TA83 PO; +EMPA25TA PO; +FURO-150 PO; +METO-395 PO
[2023-09-30] MEDS ORDERED: LORazepam 0.5 MG tablet PO PRN (10:00)
[2023-09-30] MEDS ORDERED: diphenhydrAMINE 25mg capsule PO PRN (10:00)
[2023-09-30] MEDS ORDERED: normal saline 1,000 ML IV SCH (10:00)
[2023-09-30] MEDS ORDERED: acetylcysteine 200 MG/ml 4ml vial PO PRN (10:00)
[2023-09-30] MEDS ORDERED: midazolam 1 mg/ML 2ml injection ONE (10:53)
[2023-09-30] MEDS ORDERED: fentaNYL/PF 50MCG/1 ML 2ML syringe ONE (10:53)
[2023-09-30] MEDS ORDERED: LIDOcaine 1% (10mg/ml) 2ml vial ONE (10:53)
[2023-09-30] MEDS ORDERED: heparin 1,000unit/ml 10ml vial 10 ML ONE (10:53)
[2023-09-30] MEDS ORDERED: verapamil 2.5 mg/ml inj IV ONE (10:53)
[2023-09-30] MEDS ORDERED: nitroGLYCERIN 500mcg/5mL D5W 5 ML IV ONE ×2 (10:54→12:04)
[2023-09-30] MEDS ORDERED: iohexol 350MG/ML 100ml bottle IV ONE (10:54)
[2023-09-30] MEDS ORDERED: heparin 25,000 UNIT/250ml bag 250 ML IV ONE (10:58)
[2023-09-30] MEDS: ondansetron/PF 4mg/2ml inj IV PRN ×2 (11:30→16:50)
[2023-09-30] MEDS ORDERED: hydrocortisone sod succ/PF 100mg/2ml inj. ONE (11:36)
[2023-09-30] MEDS ORDERED: clopidogrel 300mg tablet ONE (12:21)
[2023-09-30] MEDS ORDERED: CYAN100T45 PO (12:26)
[2023-09-30] MEDS ORDERED: CHOL10006 PO (12:26)
[2023-09-30] MEDS ORDERED: BENA10TA75 PO (12:26)
[2023-09-30] MEDS ORDERED: hydrALAZINE 20mg/ml inj. IV ONE (12:29)
[2023-09-30] MEDS ORDERED: ondansetron/PF 4mg/2ml inj ONE (13:05)
[2023-09-30] MEDS ORDERED: sodium bicarbonate 1meq/ml inj 150 ML in dextrose 5%-water 1,000 ML IV ONE (13:45)
[2023-09-30] MEDS ORDERED: acetylcysteine 200 MG/ml 4ml vial PO ONE (16:35)
[2023-09-30] MEDS ORDERED: acetaminophen 325mg tablet PO PRN (16:35)
[2023-09-30] MEDS ORDERED: HYDROcodone/acetaminophen 5mg/325mg tablet PO ONE (16:35)
[2023-09-30] MEDS ORDERED: lisinopril 10 MG tablet PO ONE (17:00)
[2023-10-01] MEDS ORDERED: metoprolol succinate 25mg (24-HOUR) SR. Tablet PO ONE (08:00)
== END 2023-09-30 17:55 | disposition home or self-care (01) ==
LOC: SSTAY O 08:53
PROVIDERS: ATTEND Internal Medicine Cardiovascular Disease
DX: I25.10 Atherosclerotic heart disease of native coronary artery without angina pectoris (principal); I48.0 Paroxysmal atrial fibrillation; I10 Essential (primary) hypertension; E11.9 Type 2 diabetes mellitus without complications; E78.5 Hyperlipidemia, unspecified; F32.A Depression, unspecified; I36.1 Nonrheumatic tricuspid (valve) insufficiency; Q21.10 Atrial septal defect, unspecified; Z90.710 Acquired absence of both cervix and uterus; Z98.890 Other specified postprocedural states; Z79.4 Long term (current) use of insulin; Z79.899 Other long term (current) drug therapy; Z83.3 Family history of diabetes mellitus; Z82.49 Family history of ischemic heart disease and other diseases of the circulatory system; Z81.8 Family history of other mental and behavioral disorders
CPT/HCPCS: 36415; 76937; 80048; 82948; 85025; 85347; 85610; 85730; 93005; 99152; 99153; A6258; C1874; C9600; J0360; J1644; J1720; J2250; J2405; J3010; J3490; J7030; J7070; Q0163; Q9967; 93454; A6402; C1725; C1751; C1769; C1894

== ENCOUNTER 2024-01-05 19:07 | Emergency (ER) | payer MEDICARE ==
[~2024-01-05] VITALS: Ht 160 cm; Wt 81.8 kg
[~2024-01-05 19:07] MED LIST changes: -ASPI81TA52 PO; +BENA10TA75 PO; -BENA20TA83 PO; +CHOL10006 PO; +CYAN100T45 PO
[2024-01-05 21:18] VITALS: BP 181/108; PULSE 18; RESP 18; TEMP 97.4; O2SAT 98
== END 2024-01-05 21:41 | disposition home or self-care (01) ==
LOC: ER 19:09
DX: R58 Hemorrhage, not elsewhere classified (principal); Z91.09 Other allergy status, other than to drugs and biological substances; Z79.899 Other long term (current) drug therapy; Z79.84 Long term (current) use of oral hypoglycemic drugs
CPT/HCPCS: 99281